=== PATIENT | female | born 1995 | race African-American/Black ===

== ENCOUNTER → 2019-07-03 | Outpatient (CLI) | payer OTHER ==
--- NOTE | 2019-07-06 10:21 | PCVCIMAG ---
EXAM: BILATERAL SUPERFICIAL VENOUS DUPLEX INDICATION: Leg pain and swelling. FINDINGS: Right leg: No thrombus in the common femoral, main femoral, or popliteal veins. These veins are compressible. Right Great Saphenous Vein: At the saphenofemoral junction the diameter is 9.4 mm, in the mid thigh it is 5.6 mm, and in the calf it is 3.5 mm. There is not significant venous insufficiency/reflux throughout. Venous insufficiency/reflux duration is 0 seconds. Right Small Saphenous Vein: At the saphenopopliteal junction the diameter is 3.7 mm, and in the calf it is 2.2 mm. There is not significant venous insufficiency/reflux throughout. Venous insufficiency/reflux duration is 0 seconds. There is not a cranial extension present. Left leg: No thrombus in the common femoral, main femoral, or popliteal veins. These veins are compressible. Left Great Saphenous Vein: At the saphenofemoral junction the diameter is 10.9 mm, in the mid thigh it is 4.4 mm, and in the calf it is 3.2 mm. There is not significant venous insufficiency/reflux throughout. Venous insufficiency/reflux duration is 0.2 seconds. Left Small Saphenous Vein: At the saphenopopliteal junction the diameter is 4.6 mm, and in the calf it is 2.9 mm. There is not significant venous insufficiency/reflux throughout. Venous insufficiency/reflux duration is 0 seconds. There is not a cranial extension present. IMPRESSION: Right Great Saphenous Vein: No significant venous insufficiency/reflux is present as noted above. Right Small Saphenous Vein: No significant venous insufficiency/reflux is present as noted above. Left Great Saphenous Vein: No significant venous insufficiency/reflux is present as noted above. Left Small Saphenous Vein: No significant venous insufficiency/reflux is present as noted above. LOC:[place] [id number]
== END | disposition home or self-care (01) ==
LOC: PCVCIMAG 14:20
PROVIDERS: ATTEND Nurse Practitioner
DX: I87.2 Venous insufficiency (chronic) (peripheral) (principal)
CPT/HCPCS: 93970